=== PATIENT | female | born 1955 | race African-American/Black ===

== ENCOUNTER 2022-04-13 12:16 | Observation (INO) | payer OTHER ==
[2022-04-13] MEDS ORDERED: ASPIRIN 81 MG CHEWABLE TABLETS PO ONE (14:05)
[2022-04-13] MEDS ORDERED: ASPIRIN 81 MG CHEWABLE TABLETS ONE (14:21)
[2022-04-13 14:27] LABS: BASO % 0.6 % (0-2.0); EOS % 3.1 % (0-4.5); HEMATOCRIT 36.8 % (32.4-45.2); HEMOGLOBIN 12.1 GM/dL (10.7-15.3); LYMPH % 24.3 % (8-40); MCH 29.8 pg (25.7-33.7); MCHC 32.9 g/dl (32.0-36.0); MEAN CELL VOLUME 90.7 fl (80-96); MEAN PLT VOLUME 7.2 fl (7.5-11.1); MONO % 4.3 % (3.8-10.2); NEUT % 67.7 % (42.8-82.8); PLATELET COUNT 449 10^3/uL (134-434); RBC 4.06 M/mm3 (3.60-5.2); RDW 14.3 % (11.6-15.6); WHITE BLOOD COUNT 10.1 K/mm3 (4.0-10.0)
[2022-04-13 14:43] LABS: INR 0.99 (0.83-1.09); PROTHROMBIN TIME (PATIENT) 11.4 SEC (9.7-13.0)
[2022-04-13 14:52] LABS: CALCIUM 9.6 mg/dL (8.5-10.1)
[2022-04-13 14:53] LABS: ALBUMIN 3.3 g/dl (3.4-5.0); BLOOD UREA NITROGEN 15.6 mg/dL (7-18)
[2022-04-13 14:56] LABS: CREATININE 0.8 mg/dL (0.55-1.3)
[2022-04-13 14:58] LABS: TOT PROT 7.7 g/dl (6.4-8.2)
[2022-04-13 14:59] LABS: BILIRUBIN,TOTAL 0.4 mg/dL (0.2-1)
[2022-04-13] MEDS ORDERED: ALBUTEROL SO4 2.5/IPRATROPIUM 0.5 INH SOL 3 ML VIAL.NEB. NEB ONE ×2 (21:22→23:04)
[2022-04-13] MEDS ORDERED: guaiFENesin/D-METHORPHAN HB 10 ML UNIT-DOSE CUPS PO ONE (21:22)
[2022-04-13] MEDS ORDERED: ALBUTEROL SO4 HFA INHALER IH PRN (21:26)
[2022-04-13] MEDS ORDERED: ATORVASTATIN CA 40 MG TABLET (FP) PO SCH (22:00)
[2022-04-13] MEDS ORDERED: guaiFENesin/D-METHORPHAN HB 10 ML UNIT-DOSE CUPS ONE (23:04)
[2022-04-13] MEDS ORDERED: ATORVASTATIN CA 40 MG TABLET (FP) ONE (23:04)
[2022-04-13] MEDS ORDERED: LORATADINE 10 MG TABLET ONE (23:05)
[2022-04-13] MEDS: LORATADINE 10 MG TABLET PO SCH (23:16)
[2022-04-13] MEDS: INSULIN SLIDING SCALE (NOVOLOG) 1 VIAL SQ SCH (23:16)
[2022-04-14] MEDS ORDERED: guaiFENesin 200 MG/10 ML 10 ML UNIT-DOSE CUPS PO ONE (02:34)
[2022-04-14 03:19] VITALS: BMI 42.0
[2022-04-14] MEDS: INSULIN SLIDING SCALE (NOVOLOG) 1 VIAL SQ SCH ×3 (06:10→17:10)
[2022-04-14 08:21] LABS: BASO % 0.2 % (0-2.0); EOS % 3.3 % (0-4.5); HEMATOCRIT 35.2 % (32.4-45.2); HEMOGLOBIN 11.8 GM/dL (10.7-15.3); LYMPH % 22.1 % (8-40); MCH 30.3 pg (25.7-33.7); MCHC 33.6 g/dl (32.0-36.0); MEAN CELL VOLUME 90.2 fl (80-96); MEAN PLT VOLUME 7.3 fl (7.5-11.1); MONO % 6.4 % (3.8-10.2); PLATELET COUNT 409 10^3/uL (134-434); RDW 14.4 % (11.6-15.6); WHITE BLOOD COUNT 9.8 K/mm3 (4.0-10.0)
[2022-04-14 08:37] LABS: ALBUMIN 3.2 g/dl (3.4-5.0); BLOOD UREA NITROGEN 13.3 mg/dL (7-18); CALCIUM 9.3 mg/dL (8.5-10.1); MAGNESIUM 2.1 mg/dL (1.8-2.4)
[2022-04-14 08:40] LABS: CREATININE 0.7 mg/dL (0.55-1.3)
[2022-04-14 08:41] LABS: BILIRUBIN,TOTAL 0.7 mg/dL (0.2-1); TOT PROT 7.2 g/dl (6.4-8.2)
[2022-04-14] MEDS ORDERED: ENOXAPARIN NA (PORCINE) 40 MG/0.4 ML DISP.SYRIN SQ SCH (10:00)
[2022-04-14] MEDS ORDERED: amLODIPine BESYLATE 10 MG TABLET (FP) PO SCH (10:00)
[2022-04-14] MEDS ORDERED: ASPIRIN COATED 81 MG TABLET.EC PO SCH (10:00)
[2022-04-14] MEDS ORDERED: CHLORTHALIDONE 25 MG TABLET PO SCH (10:00)
[2022-04-14] MEDS: LORATADINE 10 MG TABLET PO SCH (11:24)
[2022-04-14] MEDS ORDERED: methylPREDNISolone NA SUCC 40 MG/1 ML VIAL IVPUSH SCH (13:15)
[2022-04-14 14:28] VITALS: BP 118/60; PULSE 72; TEMP 98.5
[2022-04-14] MEDS ORDERED: ALBUTEROL SO4 2.5/IPRATROPIUM 0.5 INH SOL 3 ML VIAL.NEB. NEB SCH (16:00)
== END 2022-04-14 17:04 | disposition home or self-care (01) ==
LOC: JERFT 12:16 → JER 12:16 → JERBED 18:02 → INTOOBSV 18:02 → J4W 04-14 02:19
PROVIDERS: ADMIT Hospitalist; ATTEND Internal Medicine
PROC: 3E0F7GC Introduction of Other Therapeutic Substance into Respiratory Tract, Via Natural or Artificial Opening (ICD-10-PCS; principal; 2022-04-13)
PROC: 3E023GC Introduction of Other Therapeutic Substance into Muscle, Percutaneous Approach (ICD-10-PCS; 2022-04-13)
PROC: 3E033GC Introduction of Other Therapeutic Substance into Peripheral Vein, Percutaneous Approach (ICD-10-PCS; 2022-04-13)
DX: J45.41 Moderate persistent asthma with (acute) exacerbation (principal); I10 Essential (primary) hypertension; E78.5 Hyperlipidemia, unspecified; R73.03 Prediabetes; E66.01 Morbid (severe) obesity due to excess calories; Z68.41 Body mass index [BMI] 40.0-44.9, adult; M41.9 Scoliosis, unspecified; G47.30 Sleep apnea, unspecified; I34.0 Nonrheumatic mitral (valve) insufficiency; R79.89 Other specified abnormal findings of blood chemistry
CPT/HCPCS: 0241U-QW; 36415; 71046-TC-FY; 71275-TC; 80053; 80061; 82962; 83036; 83735; 83880; 84443; 84484; 85025; 85379; 85610; 93005; 93010; 93306-TC; 94640; 96372; 96374; 99285-25; G0378; Q9967

== ENCOUNTER 2022-07-13 06:30 | Day surgery (SDC) | payer OTHER ==
[2022-07-13 10:59] VITALS: BMI 41.0
[2022-07-13] MEDS ORDERED: MIDAZOLAM HCL 2 MG/2 ML SINGLE DOSE VIAL ONE (14:25)
[2022-07-13] MEDS ORDERED: PROPOFOL 20 ML ONE (14:25)
[2022-07-13] MEDS ORDERED: LIDOCAINE HCL/PF 2% SDV 5ML VIAL ONE (14:26)
[2022-07-13] MEDS ORDERED: ceFAZolin SODIUM 1 GM VIAL ONE (14:38)
[2022-07-13] MEDS ORDERED: ONDANSETRON 4 MG/2 ML VIAL IVPUSH PRN (14:38)
[2022-07-13] MEDS ORDERED: oxyCODONE HCL 5 MG TABLET PO PRN (14:38)
[2022-07-13] MEDS ORDERED: ceFAZolin SODIUM 1 GM VIAL IVPB ONE (14:40)
[2022-07-13] MEDS ORDERED: DEXAMETHASONE SOD PHOSPHATE 4 MG/1 ML VIAL ONE (14:45)
[2022-07-13] MEDS ORDERED: GLYCOPYRROLATE 0.2 MG/1 ML VIAL ONE (14:45)
[2022-07-13] MEDS ORDERED: SILVER NITRATE 75% APPLIC STCK 1 PKT EACH TP ONE (15:00)
[2022-07-13] MEDS ORDERED: KETOROLAC TROMETHAMINE 30 MG/1 ML VIAL ONE (15:02)
[2022-07-13 16:27] VITALS: TEMP 97.5
[2022-07-13 18:00] VITALS: BP 125/65; PULSE 80; RESP 20
== END 2022-07-13 17:45 | disposition home or self-care (01) ==
LOC: JASU-SURG 06:30
PROVIDERS: ATTEND Obstetrics & Gynecology
PROC: 0UDB8ZX Extraction of Endometrium, Via Natural or Artificial Opening Endoscopic, Diagnostic (ICD-10-PCS; principal; 2022-07-13 14:00)
DX: N88.2 Stricture and stenosis of cervix uteri (principal)
CPT/HCPCS: 82962; 88305-TC; 94760

== ENCOUNTER 2024-08-19 19:58 | Emergency (ER) | payer OTHER ==
[2024-08-19 20:06] VITALS: BP 127/75; PULSE 72; RESP 20; TEMP 98.5; BMI 29.6
== END 2024-08-19 22:54 | disposition home or self-care (01) ==
LOC: JER 19:58
DX: R09.A2 Foreign body sensation, throat (principal)
CPT/HCPCS: 70360-TC-FY; 99283-25